=== PATIENT | female | born 1980 | race Caucasian/White ===

== ENCOUNTER 2017-02-08 10:47 | Emergency (ER) | payer BC ==
[~2017-02-08] VITALS: Ht 152.4 cm; Wt 98.6 kg
[~2017-02-08 10:47] MED LIST: FLUC150T PO; LEVO-371 PO; MONT1TAB3 PO; PRM625 PO; RIZA10TA18 PO; topomax PO
[2017-02-08 10:55] VITALS: TEMP 36.6; Ht 152.4 cm; Wt 98.6 kg
[2017-02-08] MEDS ORDERED: TOPI25TA99 PO (11:43)
[2017-02-08 11:57] LABS: BASO % 0.3 %; BASO ABS # 0.02 K/uL (0-0.2); COMPLETE YES; EOS % 3.6 %; HEMATOCRIT 40.9 % (37-47); IG% 0.3 %; LYMPH % 25.6 %; LYMPH ABS # 2.01 K/uL (1.2-3.4); MEAN CELL VOLUME 84.2 fL (80-100); MEAN CORPUSCULAR HEMOGLOBIN 28.4 pg (25-34); MEAN CORPUSCULAR HGB CONC 33.7 g/dl (32-36); MEAN PLATELET VOLUME 9.7 fL (7.4-10.4); MONO % 3.7 %; NEUT % 66.5 %; PLATELET COUNT 282 K/uL (130-400); RED BLOOD COUNT 4.86 M/uL (4.2-5.4); WHITE BLOOD COUNT 7.84 K/uL (4.8-10.8)
[2017-02-08 12:19] LABS: URINE APPEARANCE CLEAR (CLEAR); URINE BILIRUBIN NEG (NEG); URINE COLOR YELLOW; URINE NITRITE NEG (NEG); URINE SPECIFIC GRAVITY 1.012 (1.000-1.030); UROBILINOGEN NEG (NEG)
[2017-02-08 12:21] LABS: ALT/SGPT 28 U/L (12-78); AST/SGOT 11 U/L (15-37); BLOOD UREA NITROGEN 7 mg/dl (7-18); BUN/CREATININE RATIO 9.2 (10-20); CALCIUM 8.7 mg/dl (8.5-10.1); CARBON DIOXIDE 25 mmol/L (21-32); CHLORIDE 110 mmol/L (98-107); CREATININE 0.74 mg/dl (0.60-1.20); GLUCOSE 94 mg/dl (70-99); MAGNESIUM 2.2 mg/dl (1.8-2.4); POTASSIUM 3.7 mmol/L (3.5-5.1); SODIUM 140 mmol/L (136-145)
[2017-02-08 12:32] LABS: ALKALINE PHOSPHATASE 152 U/L (45-117); MANUAL MICROSCOPIC REQUIRED? NO; REVIEW REQ? NO
--- NOTE | 2017-02-08 13:03 | DIAGNOSTIC IMAGING REPORT ---
CHEST ONE VIEW PORTABLE HISTORY: EVALUATE ALTERED MENTAL STATUS/WEAKNESS COMPARISON: Chest 09/05/2014. FINDINGS: The lungs are clear. Cardiac silhouette is normal in size. No pleural effusions. No pneumothorax. IMPRESSION: No acute process. Electronically signed by: Chinmay Tesfaye M.D. 02/08/2017 12:46 PM Dictated Date/Time: 02/08/2017 12:45 PM
--- NOTE | 2017-02-08 13:03 | DIAGNOSTIC IMAGING REPORT ---
HEAD CT NONCONTRAST CT DOSE: 638.56 mGycm HISTORY: Left cheek numbness. EVALUATE ALTERED MENTAL STATUS/WEAKNESS TECHNIQUE: Multiaxial CT images of the head were performed without the use of intravenous contrast. Automated exposure control was utilized for this study. A dose lowering technique was utilized adhering to the principles of ALARA. Comparison: None. Findings: The paranasal sinuses and mastoid air cells are clear. The calvarium and skull base are intact. The ventricles and sulci are within normal limits. There is no mass, hematoma, midline shift, or acute infarct. Impression: No acute intracranial abnormality. Electronically signed by: Chinmay Tesfaye M.D. 02/08/2017 12:31 PM Dictated Date/Time: 02/08/2017 12:28 PM
[2017-02-08 13:28] VITALS: O2SAT 98
--- NOTE | 2017-02-08 13:35 | EMERGENCY ROOM VISIT NOTE ---
History Report prepared by Heena: Fermin Horton Under the Supervision of: Dr. Shayne Guadarrama D.O. First contact with patient: 11:45 Chief Complaint: NEURO SYMPTOMS Stated Complaint: FACIAL NUMBNESS, VOMITING, EYE TWITCHING Nursing Triage Summary: Patient c/o left sided lip numbness and tingling numbness in left cheek since last evening and eye twitching since January 25. Thought it was a migraine, hx migraines but only ever had numbness once but did not have a headache. 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 Left thumb twitching and muscle spasms in legs over the past couple week. Family hx of Brain CA. History of Present Illness The patient is a 36 year old female who presents to the Emergency Room with complaints of intermittent bilateral eye twitching beginning about two weeks ago. She states that she has also had left thumb twitching as well. She states that she developed left cheek and lip numbness yesterday. The patient has a history of migraines, and states that she has had one prior migraine that caused facial numbness. She notes that she vomited this morning upon waking up. She denies any nausea, or facial droop. The patient notes that she is under increased stress recently due to going back to work. She states that she may have had some trouble finding words as well. She is concerned as she has family history of brain cancer. The patient is on Topamax for her migraines. Source of History: patient Onset: intermittent Position: eye (bilateral) Quality: other (twitching) Timing: intermittent Associated Symptoms: + vomiting, No nausea Note: The patient denies any facial droop. She also complains of left thumb twitching. Review of Systems See HPI for pertinent positives & negatives. A total of 10 systems reviewed and were otherwise negative. Past Medical & Surgical Medical Problems: (1) Hartman syndrome Surgical Problems: (1) H/O: hysterectomy Family History Cancer Gallbladder disease Social History Smoking Status: Never Smoker Drug Use: none Marital Status: Occupation Status: employed Current/Historical Medications Scheduled Estrogens, Conjugated (Premarin), 0.625 MG PO DAILY Levocetirizine Dihydrochloride (Xyzal), 5 MG PO DAILY Montelukast Sodium (Singulair), 10 MG PO DAILY Topiramate (Topamax ), 75 MG PO BID Scheduled PRN Rizatriptan Benzoate (Maxalt), 10 MG PO Q2H PRN for Migraine Allergies Coded Allergies: Prednisone (Verified Allergy, Unknown, muscle spasms as a child, 11/15/15) INFO OBTAINED FROM PRE ANESTHESIA QUESTIONNAIRE Physical Exam Vital Signs Date Time Temp Pulse Resp B/P (MAP) Pulse Ox O2 Delivery O2 Flow Rate FiO2 02/08/17 13:28 77 18 139/82 98 Room Air 02/08/17 13:17 74 15 02/08/17 13:02 66 14 02/08/17 12:47 86 24 02/08/17 12:36 72 02/08/17 11:16 81 18 130/80 98 02/08/17 11:16 130/80 02/08/17 10:55 36.6 103 20 169/83 98 Room Air Physical Exam GENERAL: Patient is awake, alert, and in no acute distress. Patient is resting comfortably and showing no signs of anxiety EYES: The conjunctivae are clear. The pupils are round and reactive. EARS, NOSE, MOUTH AND THROAT: The nose is without any evidence of any deformity. Mucous membranes are moist tongue is midline NECK: The neck is nontender and supple. RESPIRATORY: Normal respiratory effort is noted there is no evidence of wheezing rhonchi or rales CARDIOVASCULAR: Regular rate and rhythm noted there no murmurs rubs or gallops normal S1 normal S2 GASTROINTESTINAL: The abdomen is soft. Bowel sounds are present in all quadrants. Abdomen is nontender MUSCULOSKELETAL/EXTREMITIES: There is no evidence of gross deformity full range of motion is noted in the hips and shoulders SKIN: There is no obvious evidence of any rash. There are no petechiae, pallor or cyanosis noted. NEUROLOGIC: Patient is awake alert and oriented x3 strength is symmetric patellar reflexes are 2+ bilaterally Medical Decision & Procedures ER Provider Diagnostic Interpretation: Radiology results as stated below per my review and radiologist interpretation: HEAD CT NONCONTRAST Findings: The paranasal sinuses and mastoid air cells are clear. The calvarium and skull base are intact. The ventricles and sulci are within normal limits. There is no mass, hematoma, midline shift, or acute infarct. Impression: No acute intracranial abnormality. Electronically signed by: Chinmay Tesfaye M.D. CHEST ONE VIEW PORTABLE FINDINGS: The lungs are clear. Cardiac silhouette is normal in size. No pleural effusions. No pneumothorax. IMPRESSION: No acute process. Electronically signed by: Chinmay Tesfaye M.D. 02/08/2017 12:46 PM Laboratory Results 02/08/17 11:30 Red Blood Count 4.86, Mean Corpuscular Volume 84.2, Mean Corpuscular Hemoglobin 28.4, Mean Corpuscular Hemoglobin Concent 33.7, Mean Platelet Volume 9.7, Neutrophils (%) (Auto) 66.5, Lymphocytes (%) (Auto) 25.6, Monocytes (%) (Auto) 3.7, Eosinophils (%) (Auto) 3.6, Basophils (%) (Auto) 0.3, Neutrophils # (Auto) 5.22, Lymphocytes # (Auto) 2.01, Monocytes # (Auto) 0.29, Eosinophils # (Auto) 0.28, Basophils # (Auto) 0.02 02/08/17 11:30 Test 02/08/17 11:30 White Blood Count 7.84 K/uL (4.8-10.8) Red Blood Count 4.86 M/uL (4.2-5.4) Hemoglobin 13.8 g/dL (12.0-16.0) Hematocrit 40.9 % (37-47) Mean Corpuscular Volume 84.2 fL (80-100) Mean Corpuscular Hemoglobin 28.4 pg (25-34) Mean Corpuscular Hemoglobin Concent 33.7 g/dl (32-36) Platelet Count 282 K/uL (130-400) Mean Platelet Volume 9.7 fL (7.4-10.4) Neutrophils (%) (Auto) 66.5 % Lymphocytes (%) (Auto) 25.6 % Monocytes (%) (Auto) 3.7 % Eosinophils (%) (Auto) 3.6 % Basophils (%) (Auto) 0.3 % Neutrophils # (Auto) 5.22 K/uL (1.4-6.5) Lymphocytes # (Auto) 2.01 K/uL (1.2-3.4) Monocytes # (Auto) 0.29 K/uL (0.11-0.59) Eosinophils # (Auto) 0.28 K/uL (0-0.5) Basophils # (Auto) 0.02 K/uL (0-0.2) RDW Standard Deviation 39.5 fL (36.4-46.3) RDW Coefficient of Variation 13.2 % (11.5-14.5) Immature Granulocyte % (Auto) 0.3 % Immature Granulocyte # (Auto) 0.02 K/uL (0.00-0.02) Urine Color YELLOW Urine Appearance CLEAR (CLEAR) Urine pH 7.0 (4.5-7.5) Urine Specific [place] 1.012 (1.000-1.030) Urine Protein NEG (NEG) Urine Glucose (UA) NEG (NEG) Urine Ketones NEG (NEG) Urine Occult Blood NEG (NEG) Urine Nitrite NEG (NEG) Urine Bilirubin NEG (NEG) Urine Urobilinogen NEG (NEG) Urine Leukocyte Esterase NEG (NEG) Anion Gap 5.0 mmol/L (3-11) Est Creatinine Clear Calc Drug Dose 109.7 ml/min Estimated GFR () 120.0 Estimated GFR (Non- 103.5 BUN/Creatinine Ratio 9.2 (10-20) Calcium Level 8.7 mg/dl (8.5-10.1) Magnesium Level 2.2 mg/dl (1.8-2.4) Total Bilirubin 0.3 mg/dl (0.2-1) Direct Bilirubin < 0.1 mg/dl (0-0.2) Aspartate Amino Transf (AST/SGOT) 11 U/L (15-37) Alanine Aminotransferase (ALT/SGPT) 28 U/L (12-78) Alkaline Phosphatase 152 U/L (45-117) Total Protein 7.5 gm/dl (6.4-8.2) Albumin 3.6 gm/dl (3.4-5.0) Thyroid Stimulating Hormone (TSH) 1.460 uIu/ml (0.300-4.500) Free Thyroxine 1.11 ng/dl (0.80-1.60) Laboratory results per my review. ED Course 1146: The patient was evaluated in room C8. A complete history and physical examination were performed. 1335: Upon reevaluation, the patient is resting comfortably. I discussed the results and treatment plan with her. She verbalized agreement of the treatment plan. The patient was discharged home. Medical Decision Differential diagnosis: Etiologies such as metabolic, infection, hypo/hyperglycemia, electrolyte abnormalities, cardiac sources, intracerebral event, toxicologic, neurologic, as well as others were entertained. Nursing notes reviewed. The patient is a 36-year-old female who presented to the emergency department for an evaluation of twitching in her left thumb at the corner of her left eye and also paresthesias on her face. The patient has had ongoing symptoms for the last few days. She has not seen her primary care physician for these complaints. At this time she has no focal neurologic deficit. She states that she had a similar episode in the past but was associated with a possible migraine. I discussed the patient's laboratory and radiographic studies with her. She was reevaluated multiple times. She was encouraged to call her primary care physician as soon as possible to set up a follow-up appointment. She was also encouraged to discuss the possibility that she may require further studies such as an MRI the brain or possibly a referral to a neurologist to further evaluate the cause of her symptoms. Otherwise she was encouraged to return to the emergency department immediately if symptoms change worsen or the need arises. Medication Reconcilliation Current Medication List: was personally reviewed by me Blood Pressure Screening Patient's blood pressure: Elevated blood pressure Blood pressure disposition: Elevated BP felt to be situational Impression Primary Impression: Muscle tremor Scribe Attestation The scribe's documentation has been prepared under my direction and personally reviewed by me in its entirety. I confirm that the note above accurately reflects all work, treatment, procedures, and medical decision making performed by me. Departure Information Dispostion Home / Self-Care Referrals No Doctor, Assigned (PCP) Forms HOME CARE DOCUMENTATION FORM, IMPORTANT VISIT INFORMATION, WORK / SCHOOL INSTRUCTIONS Patient Instructions My [facility] Additional Instructions Continue all medications as prescribed. Rest and avoid any strenuous activity. Follow-up with your doctor soon as possible. Discussed the possibility that you may require further studies such as an MRI the brain to further evaluate the cause your symptoms. Return to the emergency Department immediately if symptoms change worsen or the need arises.
[2017-02-08 13:52] VITALS: PULSE 68
[2017-02-08 14:01] VITALS: BP 128/87
== END 2017-02-08 14:07 | disposition home or self-care (01) ==
LOC: C.EDB 10:48 → C.EDC 14:07
DX: R25.1 Tremor, unspecified (principal); R20.0 Anesthesia of skin; Z80.8 Family history of malignant neoplasm of other organs or systems; Z90.710 Acquired absence of both cervix and uterus; Z79.899 Other long term (current) drug therapy